=== PATIENT | male | born 1990 | race Two or more races ===

== ENCOUNTER 2021-11-15 02:19 | Emergency (ER) | payer SELFPAY ==
[2021-11-15] MEDS ORDERED: Furosemide 40 MG/4 ML VIAL IVPUSH STA (02:46)
[2021-11-15] MEDS ORDERED: Piperacillin/Tazobactam 4.5 GM in Sodium Chloride 0.9% 100 ML IV ONE (02:53)
[2021-11-15 03:24] LABS: BLOOD UREA NITROGEN,BUN 8 mg/dL (7.0-18.0); CARBON DIOXIDE,CO2 23.6 mmol/L (21.0-32.0); CHLORIDE,CL 96 mmol/L (98-107); GLUCOSE RANDOM 106 mg/dL (74-106); LIPASE 313 U/L (73-393); POTASSIUM,K 2.9 mmol/L (3.5-5.1); SODIUM,NA 132 mmol/L (136-148)
[2021-11-15 03:27] LABS: ESTIMATED GFR 121 mL/min (>60)
[2021-11-15] MEDS ORDERED: Iopamidol 755 MG/ML 500 ML Multipack Bottle IVPUSH ONE (03:53)
[2021-11-15] MEDS: Potassium Chloride 100 ML IV SCH ×2 (04:08→06:24)
== END 2021-11-15 07:01 ==
LOC: MW.ED 02:19
DX: K70.10 Alcoholic hepatitis without ascites (principal); R06.82 Tachypnea, not elsewhere classified; Z20.822 Contact with and (suspected) exposure to COVID-19
CPT/HCPCS: 36415; 70491; 71045; 71260; 74177; 80053; 80074; 80305; 80307; 81001; 82140; 82550; 82803; 83605; 83690; 83735; 83880; 84484; 85025; 85610; 85730; 86706; 86803; 87040; 87340; 87635; 93005; 94660; 96365; 96366; 96367; 96375; 99285; J1940; J2543; J3480; Q9967; U0002

== ENCOUNTER 2022-12-28 15:47 | Emergency (ER) | payer BC, MEDICAID ==
[2022-12-28] MEDS ORDERED: Sodium Chloride 0.9% 10 ML Syringe FLUSH PRN (15:50)
[2022-12-28] MEDS ORDERED: Sodium Chloride 0.9% 2.5 ML Syringe FLUSH PRN (15:50)
[2022-12-28 16:55] LABS: BASOPHILS PERCENT AUTO 0.5 % (0.0-1.5); EOSINOPHILS ABSOLUTE AUTO 0.8 K/uL (0.0-0.7); EOSINOPHILS PERCENT AUTO 9.6 % (0.0-7.0); HEMATOCRIT 21.9 % (38.0-50.0); HEMOGLOBIN 6.8 g/dL (13.0-17.0); LYMPHOCYTES ABSOLUTE AUTO 1.6 K/uL (0.6-2.4); LYMPHOCYTES PERCENT AUTO 19.9 % (16.0-40.0); MEAN CORPUSCULAR HEMOGLOBIN 28.6 pg (27.0-32.0); MEAN CORPUSCULAR HGB CONC 31.1 g/dL (31.0-37.0); MONOCYTES ABSOLUTE AUTO 0.7 K/uL (0.0-0.8); MONOCYTES PERCENT AUTO 8.7 % (0.0-15.0); NEUTROPHILS ABSOLUTE AUTO 4.8 K/uL (1.4-5.7); NEUTROPHILS PERCENT AUTO 61.3 % (48.0-80.0); NRBC ABSOLUTE 0 K/uL; PLATELET COUNT,PLT 150 K/uL (150-400); RED BLOOD CELL COUNT 2.38 M/uL (4.50-5.90)
[2022-12-28 17:01] LABS: INR 1.32 (0.86-1.11)
[2022-12-28 17:29] LABS: A/G RATIO 0.5 (0.9-1.6); ALBUMIN 2.3 g/dL (3.4-5.0); BILIRUBIN TOTAL 1.5 mg/dL (0.2-1.0); CALCIUM 7.5 mg/dL (8.5-10.1); CARBON DIOXIDE,CO2 24.2 mmol/L (21.0-32.0); CREATININE 1.1 mg/dL (0.8-1.3); EST CRCL DRUG DOSING (CG) 97.7 mL/min; POTASSIUM,K 3.8 mmol/L (3.5-5.1); PROTEIN TOTAL,TP 7.2 g/dL (6.4-8.2)
== END 2022-12-28 20:54 | disposition home or self-care (01) ==
LOC: MW.ED 15:47
DX: I83.811 Varicose veins of right lower extremity with pain (principal); D62 Acute posthemorrhagic anemia; L29.9 Pruritus, unspecified; F10.10 Alcohol abuse, uncomplicated; Z79.899 Other long term (current) drug therapy
CPT/HCPCS: 36415; 36430; 80053; 80307; 85025; 85610; 86850; 86900; 86901; 86920; 93926; 99284; J3490; P9016; 99283

== ENCOUNTER 2023-11-24 17:53 | Emergency (ER) | payer SELFPAY ==
[2023-11-24] MEDS: Sodium Chloride 0.9% 10 ML Syringe FLUSH PRN (19:16)
[2023-11-24] MEDS: Sodium Chloride 0.9% 2.5 ML Syringe FLUSH PRN (19:17)
[2023-11-24 19:41] LABS: HEMATOCRIT 18.5 % (42.0-52.0); INR 2.02 (0.86-1.11); MEAN CORPUSCULAR HEMOGLOBIN 29.6 pg (28.0-32.0); MEAN CORPUSCULAR HGB CONC 32.4 g/dL (32.0-36.0); MEAN CORPUSCULAR VOLUME 91.1 fL (83.0-99.0); MEAN PLATELET VOLUME 9.7 fL (9.4-12.4); NRBC ABSOLUTE 0.17 K/uL (0.00-0.02); NRBC PERCENT 0.6 /100WBC (0.0-0.2); PLATELET COUNT,PLT 191 K/uL (150-400); RED BLOOD CELL COUNT 2.03 M/uL (4.52-5.90); WHITE BLOOD CELL COUNT,WBC 27.96 K/uL (3.9-11.3)
[2023-11-24 19:56] LABS: A/G RATIO 0.3 (0.9-1.6); ALBUMIN 1.5 g/dL (3.4-5.0); CALCIUM 7.3 mg/dL (8.5-10.1); CARBON DIOXIDE,CO2 11.2 mmol/L (21.0-32.0); CREATININE 2.1 mg/dL (0.8-1.3); EST CRCL DRUG DOSING (CG) 47.95 mL/min; PROTEIN TOTAL,TP 5.9 g/dL (6.4-8.2)
[2023-11-24 20:01] LABS: POTASSIUM,K 2.3 mmol/L (3.5-5.1)
[2023-11-24 20:02] LABS: BILIRUBIN TOTAL 31.2 mg/dL (0.2-1.0)
[2023-11-24 21:28] LABS: EOSINOPHILS ABSOLUTE MAN 1.12 K/uL (0.00-0.45); EOSINOPHILS PERCENT MAN 4 % (0-6); LYMPHOCYTES ABSOLUTE MAN 1.12 K/uL (1.00-4.80); LYMPHOCYTES PERCENT MAN 4 % (24-44); METAMYELOCYTE ABSOLUTE MAN 0.84; METAMYELOCYTE PERCENT MAN 3 %; MONOCYTES ABSOLUTE MAN 1.68 K/uL (0.00-0.80); MONOCYTES PERCENT MAN 6 % (0-8); SEG NEUTROPHILS ABSOLUTE MAN 23.21 K/uL (1.80-7.70); SEG NEUTROPHILS PERCENT MAN 83 % (41-71)
[2023-11-24] MEDS ORDERED: Potassium Chloride 20 MEQ in Premix Bag 1 BAG IV ONE (21:54)
[2023-11-24] MEDS: Sodium Chloride 0.9% 500 ML IV STA (22:06)
[2023-11-24] MEDS: Potassium Chloride 10 MEQ in Premix Bag 1 BAG IV ONE (22:08)
[2023-11-24] MEDS: Pantoprazole 80 MG in Sodium Chloride 0.9% 10 ML IVPUSH ONE (22:58)
== END 2023-11-24 23:00 ==
LOC: MW.ED 17:53
DX: K72.90 Hepatic failure, unspecified without coma (principal); K62.5 Hemorrhage of anus and rectum; E87.6 Hypokalemia; K76.7 Hepatorenal syndrome; Z75.8 Other problems related to medical facilities and other health care; F17.200 Nicotine dependence, unspecified, uncomplicated
CPT/HCPCS: 36415; 36430; 71045; 80053; 80307; 83605; 83690; 83735; 85025; 85610; 86850; 86900; 86901; 86920; 87040; 96365; 96375; 99285; J2470; J3480; J3490; J7030; P9016